=== PATIENT | male | born 1960 | race Caucasian/White ===

== ENCOUNTER 2021-07-13 15:12 | Emergency (ER) | payer SELFPAY ==
[~2021-07-13] VITALS: Ht 182.9 cm; Wt 136.1 kg
--- NOTE | 2021-07-13 15:12 | NUR ---
PT [address] [address] C/O FACIAL TRAUMA S/P GLF. +ETOH. PT IS AAOX3, NOT IN RESPIRATORY DISTRESS, HOOKED TO SECURITY MONITOR, KEPT RESTED AND COMFORTABLE. WILL CONTINUE TO MONITOR.
[2021-07-13] MEDS ORDERED: HYDROCODONE/APAP 5/325MG TABLET ONE (16:45)
--- NOTE | 2021-07-13 16:51 | NUR ---
THE PATIENT IS TAKEN TO CT VIA RNEY
[2021-07-13] MEDS ORDERED: CEPHALEXIN MONOHYDRATE 500 MG CAPSULE PO ONE ×2 (17:00→17:25)
[2021-07-13] MEDS ORDERED: HYDROCODONE/APAP 5/325MG TABLET PO ONE (17:00)
--- NOTE | 2021-07-13 17:18 | NUR ---
THE PATIENT IS BACK FROM CT VIA RTRINITY.
[2021-07-13] MEDS ORDERED: HYDR-4303 PO (17:49)
--- NOTE | 2021-07-13 17:55 | NUR ---
PT ABLE TO AMBULATE STRAIGHT WITHOUT ASSISTANCE.
--- NOTE | 2021-07-13 17:57 | NUR ---
The patient is alert and oriented x4. Denies pain. In room air and denies SOB. Respiration regular and unlabored. The patient has stable gait. Patient discharged to home in stable condition. Written and verbal after care instructions given. Patient verbalizes understanding of instruction.
[2021-07-13 17:58] VITALS: BP 133/85
== END 2021-07-13 17:58 | disposition home or self-care (01) ==
LOC: ER 15:14
DX: G89.29 Other chronic pain (principal); M54.50 Low back pain, unspecified; I10 Essential (primary) hypertension; E11.9 Type 2 diabetes mellitus without complications; W18.39XA Other fall on same level, initial encounter; Y93.01 Activity, walking, marching and hiking; Y92.89 Other specified places as the place of occurrence of the external cause; Y99.8 Other external cause status
CPT/HCPCS: 72131-TC; 82962-TC